=== PATIENT | female | born 1960 | race Asian ===

== ENCOUNTER 2019-01-22 13:34 | Outpatient (CLI) | payer BC | END 2019-01-22 22:37 | disposition home or self-care (01) | LOC: RAD 13:34 | DX: M25.512 Pain in left shoulder (principal); M25.521 Pain in right elbow ==

== ENCOUNTER 2019-07-21 10:59 | Outpatient (CLI) | payer BC | END 2019-07-21 19:37 | disposition home or self-care (01) | LOC: RAD 10:59 | DX: M25.561 Pain in right knee (principal) ==

== ENCOUNTER 2021-04-28 16:09 | Observation (INO) | payer OTHER ==
[~2021-04-28] VITALS: Ht 162.6 cm; Wt 92.1 kg
[2021-04-28 16:10] VITALS: BP 153/97; TEMP 98.2
[2021-04-28 17:24] LABS: PLATELET COUNT 215 K/uL (152-353)
[2021-04-28 17:34] LABS: POTASSIUM 4.1 mmol/L (3.6-5.2)
[2021-04-28 17:45] LABS: PARTIAL THROMBOPLASTIN TIME 23.3 SECONDS (24.5-33.6)
[2021-04-28 23:17] VITALS: BP 139/94; TEMP 97.9; Ht 162.6 cm; Wt 92.1 kg
[2021-04-29] VITALS: BP 92/43; TEMP 98.2
[2021-04-29 04:00] VITALS: BP 83/46; TEMP 98.4
[2021-04-29 08:30] VITALS: BP 114/77; TEMP 98.3
[2021-04-29] MEDS ORDERED: COZAAR25 MG PO (11:28)
[2021-04-29] MEDS ORDERED: EZETIMIBE10 MG PO (11:29)
[2021-04-29] MEDS ORDERED: GABA100C2 PO (11:30)
== END 2021-04-29 09:35 | disposition home or self-care (01) ==
LOC: ED 16:09 → MED/SURG 19:00
PROVIDERS: ADMIT Hospitalist; ATTEND Internal Medicine Endocrinology, Diabetes & Metabolism
DX: H53.462 Homonymous bilateral field defects, left side (principal); Z86.73 Personal history of transient ischemic attack (TIA), and cerebral infarction without residual deficits; E78.49 Other hyperlipidemia; I73.89 Other specified peripheral vascular diseases; I10 Essential (primary) hypertension; H53.8 Other visual disturbances; H53.461 Homonymous bilateral field defects, right side; Z85.3 Personal history of malignant neoplasm of breast; Z79.899 Other long term (current) drug therapy
CPT/HCPCS: 36415; 80053; 82550; 84484; 85027; 85610; 85730; 87635; 93005; 99220; 99283; G0378; J1650; U0003